=== PATIENT | female | born 1980 | race Two or more races ===

== ENCOUNTER 2022-03-26 20:49 | Emergency (ER) | payer OTHER ==
[~2022-03-26] VITALS: Ht 165.1 cm; Wt 89.4 kg
[2022-03-26] MEDS ORDERED: SYNTHROID100 MCG (21:11)
[2022-03-26] MEDS ORDERED: BENADRYL ALLERG25 MG (21:11)
[2022-03-26] MEDS ORDERED: CLARITIN5 MG (21:12)
== END 2022-03-27 01:33 | disposition home or self-care (01) ==
LOC: ER 20:49
DX: D25.9 Leiomyoma of uterus, unspecified (principal); R10.2 Pelvic and perineal pain; Z88.6 Allergy status to analgesic agent; Z91.012 Allergy to eggs

== ENCOUNTER 2022-03-27 21:13 | Emergency (ER) | payer OTHER ==
[~2022-03-27] VITALS: Ht 165.1 cm; Wt 89.4 kg
[~2022-03-27 21:13] MED LIST: BENADRYL ALLERG25 MG; CLARITIN5 MG; SYNTHROID100 MCG
== END 2022-03-27 23:16 | disposition home or self-care (01) ==
LOC: ER 21:13
DX: D25.9 Leiomyoma of uterus, unspecified (principal); R10.2 Pelvic and perineal pain; Z88.6 Allergy status to analgesic agent; Z91.012 Allergy to eggs

== ENCOUNTER 2022-04-27 12:15 | Inpatient (IN) | payer OTHER ==
[~2022-04-27] VITALS: Ht 165.1 cm; Wt 89.4 kg
== END 2022-05-05 14:16 | disposition home or self-care (01) | DRG 743 ==
LOC: O/R 05-03 06:37 → OB/GYN 05-03 11:00
PROVIDERS: ADMIT Specialist; ATTEND Specialist
PROC: 0UT70ZZ Resection of Bilateral Fallopian Tubes, Open Approach (ICD-10-PCS; 2022-05-03)
PROC: 0DNW0ZZ Release Peritoneum, Open Approach (ICD-10-PCS; 2022-05-03)
PROC: 0DNP0ZZ Release Rectum, Open Approach (ICD-10-PCS; 2022-05-03)
PROC: 0DN80ZZ Release Small Intestine, Open Approach (ICD-10-PCS; 2022-05-03)
PROC: 0UT90ZZ Resection of Uterus, Open Approach (ICD-10-PCS; principal; 2022-05-03 11:00)
DX: D25.1 Intramural leiomyoma of uterus (principal); D25.2 Subserosal leiomyoma of uterus; N72 Inflammatory disease of cervix uteri; K66.0 Peritoneal adhesions (postprocedural) (postinfection); Z20.822 Contact with and (suspected) exposure to COVID-19

== ENCOUNTER 2022-11-28 21:57 | Emergency (ER) | payer OTHER ==
[~2022-11-28] VITALS: Ht 165.1 cm; Wt 89.4 kg
== END 2022-11-29 05:57 ==
LOC: ER 21:57
DX: T18.128A Food in esophagus causing other injury, initial encounter (principal); Z88.6 Allergy status to analgesic agent; Z91.012 Allergy to eggs; X58.XXXA Exposure to other specified factors, initial encounter; Y93.9 Activity, unspecified; Y92.9 Unspecified place or not applicable